=== PATIENT | female | born 1985 | race Caucasian/White ===

== ENCOUNTER 2018-10-19 05:28 | Day surgery (SDC) | payer OTHER ==
--- NOTE | 2018-10-12 15:39 | HP ---
PREOPERATIVE HISTORY AND PHYSICAL: DATE OF ADMISSION/SURGERY: 10/19/18 [facility] DATE OF OFFICE VISIT/ENCOUNTER: 10/04/18 ATTENDING SURGEON: Huma Kelly MD * (DICTATED BY EDWIN LOW) PROCEDURE: Left wrist arthrodesis. HISTORY OF PRESENT ILLNESS: This is a 33-year-old female, who suffered a Workers' Compensation injury on 03/20/10. 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 She subsequently developed Kienbock's disease and subsequently had a proximal row carpectomy as treatment for that. Since then, she has had intermittent symptoms off and on, more frequent lately. The surgeon that did her proximal row carpectomy told her that he believed at some point she would need a wrist fusion. 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 She has flare-ups of pain in the left wrist and sometimes she uses over-the- counter medication for the pain and also sometimes wears a brace when her wrist is sore. She has restrictions in her range of motion. Occasionally, she will get some tingling on the dorsal aspect of her hand and into the index finger, particularly when her wrist is more painful. She feels ready to proceed with a left wrist arthrodesis. PAST MEDICAL HISTORY: History of anxiety. PAST SURGICAL HISTORY: 1. Cholecystectomy in 2003. 2. Tubal ligation in 2005. 3. Proximal row carpectomy in 2009, left wrist. 4. Right knee arthroscopy, 2006. MEDICATIONS: 1. Citalopram hydrobromide 20 mg daily. 2. Mirena 52 mg, 20 mcg/24 hours. ALLERGIES: She does have a medication allergy to ATARAX, reaction unknown. Also allergies to BEE STINGS, COCONUT, LATEX, and PINEAPPLE. FAMILY MEDICAL HISTORY: Noncontributory. SOCIAL HISTORY: The patient works for [employer]. She is a current smoker. She reports smoking 4 to 6 cigarettes per day and has done so for the past 16 years. She denies recreational drug use. She drinks alcohol on occasion. REVIEW OF SYSTEMS: Negative for general, cephalic, cardiovascular, respiratory , GI, , other musculoskeletal, integumentary, endocrine, neurologic, and hematologic symptoms. Infectious Disease: Negative for history of MRSA, hepatitis C, HIV. PHYSICAL EXAMINATION GENERAL: A well-developed, well-nourished, 33-year-old female, in no acute distress. VITAL SIGNS: Height 6 feet 1-1/4 inches, weight 368 pounds. Pulse rate 60, blood pressure 122/78. HEENT: Normocephalic, atraumatic. Pupils are equal, round, and reactive to light and accommodation. Extraocular movements are intact. Throat is clear. NECK: Supple. No palpable lymph nodes. PULMONARY: Lungs are clear to auscultation bilaterally. No wheezes, rales, or rhonchi. CARDIOVASCULAR: Regular rate and rhythm. S1, S2. No murmurs, rubs, or gallops. No edema. ABDOMEN: Positive bowel sounds. Soft, nontender. NEUROLOGICAL: Alert and oriented x3. Cranial nerves II through XII are intact. Sensation is intact to light touch. MUSCULOSKELETAL: On exam of her left wrist, she has a well-healed surgical incision from her proximal row carpectomy. She has mild tenderness to palpation globally about the wrist. She has about 50 degrees of flexion and extension at the left wrist. She has full supination and pronation. She can make a full fist. Neurovascular function is intact. Her elbow motion is normal. IMAGING STUDIES: X-rays, AP, lateral, and oblique of the left wrist show a previous proximal row carpectomy and subsequent development of posttraumatic arthritis between the capitate and the radius. 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 PLAN: The patient is scheduled to undergo a left wrist arthrodesis with Dr. Kelly on 10/19/18. She will return to the office 10 days postop for followup and suture removal. A prescription for [place] was e-scribed to the patient's pharmacy for postoperative pain management. EDWIN LOW [id number]/[facility] #: [id number] NA
[2018-10-19] MEDS ORDERED: Famotidine IV* 10 MG/ML 2 ML (20 mg) IV ONE (06:00)
[2018-10-19] MEDS ORDERED: Lactated Ringers 1000 ML Bag* 1,000 ML IV SCH (06:00)
[2018-10-19] MEDS ORDERED: Famotidine IV* 10 MG/ML 2 ML (20 mg) ONE (06:13)
[2018-10-19] MEDS ORDERED: ceFAZolin 1 GM in Dextrose (*) 1 GM/50 ML BAG IVPB ONE (06:13)
[2018-10-19] MEDS ORDERED: ceFAZolin 2 GM in NS PREMIX(*) 2 GM/100 ML BAG IVPB ONE (06:13)
[2018-10-19] MEDS: Buffered Lidocaine 1% SYRIN* 1 ML/SYRINGE INTRADERM ONE ×2 (06:21→06:37)
[2018-10-19] MEDS ORDERED: Bupivacaine 0.5%* 50 ML VIAL ONE (07:19)
[2018-10-19] MEDS ORDERED: Propofol* 10 MG/ML 20 ML BTL ONE ×2 (07:33→07:59)
[2018-10-19] MEDS ORDERED: Lidocaine 2% PF * 5 ML VIAL ONE (07:33)
[2018-10-19] MEDS ORDERED: fentaNYL* 50 MCG/ML 2 ML VIAL (100 MCG VIAL) ONE ×2 (07:33→09:07)
[2018-10-19] MEDS ORDERED: Ketorolac INJ* 30 MG/ML 1 ML VIAL ONE (07:59)
[2018-10-19] MEDS ORDERED: Dexamethasone IV* 4 MG/ML 1 ML (4 MG) ONE (07:59)
[2018-10-19] MEDS ORDERED: fentaNYL* 50 MCG/ML 2 ML VIAL (100 MCG VIAL) IV PRN (08:09)
[2018-10-19] MEDS ORDERED: Naloxone* 0.4 MG/ML 1 ML VIAL IV PRN ×2 (08:09→10:54)
[2018-10-19] MEDS ORDERED: PROCHLORPERAZINE INJ 5 MG/ML 2 ML VIAL IV PRN (10:54)
[2018-10-19] MEDS ORDERED: Scopolamine 1.5 mg* PATCH TRANSDERM PRN (10:54)
[2018-10-19 10:57] VITALS: BP 139/68
[2018-10-19] MEDS ORDERED: PROCHLORPERAZINE INJ 5 MG/ML 2 ML VIAL ONE (10:59)
--- NOTE | 2018-10-20 01:18 | OP ---
DATE OF OPERATION: 10/19/18 - [facility] DATE OF : 81 SURGEON: Huma Kelly MD BOLT HEADER: EDWIN Valenzuela ANESTHESIA: General. PRE-OP DIAGNOSIS: Post-traumatic arthritis of the left wrist. POST-OP DIAGNOSIS: Post-traumatic arthritis of the left wrist. OPERATIVE PROCEDURE: Left wrist arthrodesis. ESTIMATED BLOOD LOSS: Zero. TOURNIQUET TIME: About an hour. INDICATION FOR PROCEDURE: Jessenia is a 33-year-old female who had Kienbock's disease and had a proximal row carpectomy. She has developed now post- traumatic arthritis and presents for left wrist arthrodesis. The risks, benefits and alternatives of wrist replacement arthroplasty were discussed with the patient and she agrees to proceed with the wrist fusion. DESCRIPTION OF PROCEDURE: The patient was brought to the operating room, was given a general anesthetic and placed in a supine position on the operating table with a tourniquet around her left forearm. The skin of her left upper extremity was prepped and draped in the usual sterile fashion. The hand and forearm were exsanguinated and the tourniquet elevated to 250 mmHg. The previous scar was incised and extended a bit distally and proximally. We dissected to the extensor retinaculum, which was incised longitudinally in the fourth extensor compartment. The posterior interosseous nerve was located in the floor of the fourth compartment was removed. The joint capsule was then incised longitudinally and subperiosteally dissected off of the dorsal aspect of the capitate trapezoid and hamate and off of the dorsal aspect of the distal radius. A saw was used to remove Kaylie's tubercle on the radial styloid and these were later used for bone graft. The distal articular surface of the radius as well as the proximal articular surface of the capitate were removed as well. There was good bleeding cancellous bone and the bones were well approximated. An arthrodesis plate from the [employer] fusion set with a short bend was secured with 4 distal screws and 7 proximal screws. There was no motion at the wrist joint. Bone graft was packed around the interface between the capitate and radius as well as between the capitate and the hamate and the capitate and trapezoid. Position of the hardware and fusion fragments were checked on the C-arm and there has been very good position and clinically her hand looked in very good position. The wound was copiously irrigated with saline. The joint capsule was closed with 2-0 Vicryl suture and the extensor retinaculum was closed in the fourth extensor compartment. The skin edges were reapproximated with 4-0 nylon suture. The wound was dressed with Xeroform, 4x4 , Webril and a volar splint. The patient tolerated the procedure well and was brought to the recovery room in good condition. [id number]/[facility] #: [id number] MTDD
== END 2018-10-19 12:05 | disposition home or self-care (01) ==
LOC: OR 05:28
PROVIDERS: ATTEND Orthopaedic Surgery
DX: M19.132 Post-traumatic osteoarthritis, left wrist (principal); Z72.0 Tobacco use; F41.9 Anxiety disorder, unspecified
CPT/HCPCS: 76000; 88304; 88311; J0690; J0780; J1100; J1885; J2704; J3010